=== PATIENT | male | born 1945 | race Caucasian/White ===

== ENCOUNTER 2021-09-07 15:25 | Inpatient (IN) | payer MEDICARE, OTHER, SELFPAY ==
--- NOTE | 2021-09-07 15:26 | W.ED.CHESTPA ---
HPI - Chest Pain General: Chief Complaint: Chest Pain Stated Complaint: CHEST PAIN Time Seen by Provider: 09/07/21 15:25 History of Present Illness: HPI narrative: Mr. Hopkins is a 76-year-old gentleman with history of hypertension, sick sinus rhythm status post pacemaker, and history of cardiac arrest who presents to the emergency department due to chest pain. He reports being at his baseline health the past few days and was out in the yard this morning. The developed some discomfort in his back and higher chest. He initially thought that it was related to GERD however this was higher than normal. It was moderate in intensity and persisted despite rest. He did have associated mild generalized lightheadedness and radiation of the arms or discomfort on 2 spots on his arm (left). He denies frequent history of chest pain. He denies infectious symptoms. He has been compliant with his medication regimen. No other specific changes in health, provoking, exacerbating, or relieving factors that the patient identifies. Review of discharge summary from 07/2018. Patient was working and had sudden onset witnessed collapse after standin, initial rhythm was complete heart block with hypotension. Transcutaneous pacemaker was applied and the patient subsequently received transvenous pacemaker followed by permanent pacemaker. Review of Systems General: Reports: 10 or more systems reviewed and unremarkable except in HPI and below PFSH ED PFSH: Medical History Fall Fell from tree GERD (gastroesophageal reflux disease) HTN (hypertension) Osteoarthritis Sick sinus syndrome Surgical History History of ankle surgery History of hip surgery Status post placement of cardiac pacemaker Family History Other Hypertension Social History Smoking and tobacco status: never smoked Alcohol intake: current Alcohol intake frequency: holidays/special occasions only Household members: spouse Housing: House Physical Exam Narrative: EXAM NARRATIVE: GENERAL/CONSTITUTIONAL - well-appearing. No acute distress. Eyes - PERRL, no conjunctival injection ENMT - Atraumatic external nose and ears. Moist mucous membranes NECK - supple. trachea midline CARDIOVASCULAR - regular rate and rhythm. Peripheral pulses 2+ and equal RESPIRATORY -clear to auscultation bilaterally. No retractions or accessory muscle use. ABDOMEN/GI - Nontender/Nondistended. MSK - Extremities without obvious deformity or tenderness to palpation SKIN - Warm, Dry NEURO - alert and appropriately oriented. Moves all extremities equally. PSYCH - Appropriate mood and affect Course ED course: - Patient was seen and evaluated by me at bedside - Patient placed on cardiac monitors, IV access obtained - Initial evaluation notable for no acute distress, nontoxic appearance. Chest pain-free -PIPE TESTING TECHNICIAN nitro given, will defer prior due to Cialis use, PIPE TESTING TECHNICIAN full dose aspirin given. - Labs notable for Mild leukocytosis and likely hemoconcentration compared to prior. Metabolic panel with mildly elevated creatinine, delta troponin elevated. - Imaging notable for no lobar consolidation or other obvious cause patient symptoms - Upon serial reexamination after treatment the patient was similar, he remained pain-free -Discussed with cardiology on-call - Based on patient history, evaluation, labs, and imaging as interpreted the most likely cause of the patient's condition is NSTEMI - The results of ED evaluation were discussed with the patient including plan for admission due to requirement for level of care not available if discharged to prevent significant worsening/deterioration. -Hospitalist service contacted and agreed admit the patient - Patient was admitted without further deterioration or significant events. Vital Signs: Vital signs: Vital Signs Temperature 98.7 F 09/09/21 08:50 Pulse Rate 66 09/09/21 15:16 Respiratory Rate 19 H 09/09/21 15:16 Blood Pressure 124/78 09/09/21 15:16 Pulse Oximetry 94 09/09/21 11:00 MDM - Chest Pain Medical Records: Attestation: I reviewed the patient's medical records. Lab Data: Attestation: I reviewed the patient's lab results. Labs: Lab Results 09/07/21 09/07/21 09/07/21 15:44 15:44 15:44 WBC 10.1 10^3/uL H 10 ^3/uL (4.0-10.0) RBC 5.67 10^6/uL H 10 ^6/uL (4.1-5.3) Hgb 16.8 g/dL H g/dL (11.7-16.6) Hct 51.2 % % (42.0-52.0) MCV 90.3 fl fl (80-94) MCH 29.6 pg pg (28.0-34.0) MCHC 32.8 g/dL g/dL (30.0-36.0) RDW 13.9 % % (12.1-15.1) Plt Count 202 10^3/cmm 10^3 /cmm (130-400) MPV 12.3 fL H fL (7.4-10.4) Neut % (Auto) 77.4 % % Lymph % (Auto) 17.2 % % [place] % (Auto) 4.5 % % Eos % (Auto) 0.1 % % Baso % (Auto) 0.4 % % Neut # (Auto) 7.82 10^3/uL H 10 ^3/uL (1.8-7.7) Lymph # (Auto) 1.7 10^3/uL 10^3/ uL (0.8-4.8) [place] # (Auto) 0.5 10^3/uL 10^3/ uL (0.2-0.9) Eos # (Auto) 0.0 10^3/uL 10^3/ uL (0.0-0.8) Baso # (Auto) 0.0 10^3/uL 10^3/ uL (0.0-0.1) Nucleated RBC % (a uto) 0 % % Nucleated RBCs # 0.0 /100WBC /100W BC D-Dimer Sodium 139 mmol/L mmol/L (136-145) Potassium 4.8 mmol/L mmol/L (3.5-5.1) Chloride 104 mmol/L mmol/L (98-107) Carbon Dioxide 24 mmol/L mmol/L (22-29) Anion Gap 15.8 (5-19) BUN 33 mg/dL H mg/dL (8-23) Creatinine 1.3 mg/dL H mg/dL (0.7-1.2) GFR Calculation Not Reportable Glucose 118 mg/dL H mg/dL (65-115) Calculated Osmolal ity 296 mOsm/kg H mOs m/kg (285-295) Calcium 10.0 mg/dL mg/dL (8.5-10.5) Total Bilirubin 0.5 mg/dL mg/dL (0.15-1.2) AST 24 U/L U/L (0-40) ALT 15 U/L U/L (0-41) Alkaline Phosphata se 57 IU/L IU/L (40-130) Troponin T Baselin e 47 ng/L H ng/L (0-15) Troponin T [address] [place] Troponin T Total Protein 5.9 g/dL L g/dL (6.6-8.7) Albumin 4.2 g/dL g/dL (3.5-5.2) Globulin 1.7 g/dL g/dL (1.3-4.6) Lipase 45 U/L U/L (13-60) 09/07/21 09/07/21 15:44 18:00 WBC RBC Hgb Hct MCV MCH MCHC RDW Plt Count MPV Neut % (Auto) Lymph % (Auto) [place] % (Auto) Eos % (Auto) Baso % (Auto) Neut # (Auto) Lymph # (Auto) [place] # (Auto) Eos # (Auto) Baso # (Auto) Nucleated RBC % (a uto) Nucleated RBCs # D-Dimer 1.71 ug/mIFEU H u g/mIFEU (0-0.59) Sodium Potassium Chloride Carbon Dioxide Anion Gap BUN Creatinine GFR Calculation Glucose Calculated Osmolal ity Calcium Total Bilirubin AST ALT Alkaline Phosphata se Troponin T Baselin e Troponin T [address] [place] 77.15 ng/L H ng/L (0-15) Delta Troponin T 30.15 ABS# H* ABS # (0-10) Total Protein Albumin Globulin Lipase EKG Data^: EKG 1: Attestation: I personally reviewed and interpreted this EKG as follows: EKG interpretation date: 09/07/21 EKG interpretation time: 15:45 Interpretation: Twelve-lead EKG shows a regular rhythm with a rate of eighty-three. PA interval two thirty-five, QRS duration one twenty-five, QTc four fifteen. Right axis deviation. Interpretation: Sinus rhythm, first-degree AV block, Interventricular conduction delay EKG 2: Attestation: I personally reviewed and interpreted this EKG as follows: EKG interpretation date: 09/07/21 EKG interpretation time: 17:55 Interpretation: Twelve-lead EKG shows a regular rhythm at a rate of seventy-six. PA interval two thirty-nine, QRS duration one twenty-nine, QTc four twelve Right axis deviation Interpretation: Sinus rhythm, first-degree AV block, interventricular conduction delay, similar to prior. Discharge Plan Discharge Patient Disposition: Admitted As Inpatient Admit Provider: Cherelle Duron Clinical Impression: Acute non-ST elevation myocardial infarction (NSTEMI) Condition: Stable Discharge Diet: Low Salt Discharge Activity: Resume usual activity Coding Level of Care Code ED Certified Nurse Aide for Moses Marte
[2021-09-07 15:27] VITALS: BMI 28.8
--- NOTE | 2021-09-07 15:34 | XR_ITS ---
WS: [id number] XR chest 1V portable [id number] REASON FOR EXAM: chest pain FINDINGS: The chest is unchanged compared to 08/17/2018. Battery pack over the left lateral anterior chest with intact leads to the right atrium and right ventricular apex. Heart is at the upper limits of normal. Thoracic aorta is tortuous and ectatic without aneurysmal dilatation. Calcified granulomatous disease in both hemithoraces. Density overlying the periphery of the right mid lung. This appears to be overlapping scapular margin .. No definite active pulmonary parenchymal or pleural disease is seen. XR/XR chest 1V portable [id number] IMPRESSION: No acute abnormality. Presumed artifact overlying the right lung as above.
--- NOTE | 2021-09-07 15:34 | ECG_ITS ---
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 Measurements Intervals [place] Rate: 83 P: 47 [place]: 235 QRS: 113 QRSD: 125 T: -11 QT: 352 QTc: 415 Interpretive Statements SINUS RHYTHM WITH FIRST DEGREE AV BLOCK POSSIBLE RIGHT VENTRICULAR HYPERTROPHY [SOME/ALL OF: PROMINENT R IN V1, LATE TRANSITION, RAD, MIL, SSS] ST ELEVATION, PROBABLY EARLY REPOLARIZATION [ST ELEVATION WITH NORMALLY INFLECTED T-WAVE] NONSPECIFIC T-WAVE ABNORMALITY Compared to ECG 08/17/2018 01:41:59 First degree AV block now present ST (T wave) deviation now present Early repolarization now present T-wave abnormality now present Ventricular-paced complex(es) or rhythm no longer present Right bundle-branch block no longer present Left posterior fascicular block no longer present Electronically Signed On 09-07-2021 15:51:43 CDT by Scott Monge M.D. [id number]
--- NOTE | 2021-09-07 16:19 | PC.PHAR ---
pt states he takes care of his own medications -pt states he had a old rx for robaxin 750mg states he takes prn- medication doesnt show when last filled on ext med history-pt states he normally doesnt take aspirin but did take one tab today as a one time dose
[2021-09-07 16:21] LABS: Basophils % 0.4 %; Eosinophils % 0.1 %; Hematocrit 51.2 % (42.0-52.0); Hemoglobin 16.8 g/dL (11.7-16.6); Lymphocytes # 1.7 10^3/uL (0.8-4.8); Lymphocytes % 17.2 %; Mean Corpuscular HGB Conc 32.8 g/dL (30.0-36.0); Mean Corpuscular Hemoglobin 29.6 pg (28.0-34.0); Mean Corpuscular Volume 90.3 fl (80-94); Mean Platelet Volume 12.3 fL (7.4-10.4); Monocytes # 0.5 10^3/uL (0.2-0.9); Monocytes % 4.5 %; Neutrophils # 7.82 10^3/uL (1.8-7.7); Neutrophils % 77.4 %; Nucleated Red Blood Cells % 0 %; Platelet Count 202 10^3/cmm (130-400); Red Blood Count 5.67 10^6/uL (4.1-5.3); Red Cell Distribution Width 13.9 % (12.1-15.1); White Blood Count 10.1 10^3/uL (4.0-10.0)
[2021-09-07 16:43] VITALS: BP 112/59; PULSE 73; PULSE 83; RESP 14; O2SAT 97
[2021-09-07 16:43] LABS: Troponin(5th) Baseline 47 ng/L (0-15)
[2021-09-07 16:50] LABS: Alanine Aminotransferase 15 U/L (0-41); Albumin Level 4.2 g/dL (3.5-5.2); Alkaline Phosphatase 57 IU/L (40-130); Aspartate Amino Transferase 24 U/L (0-40); Blood Urea Nitrogen 33 mg/dL (8-23); Carbon Dioxide 24 mmol/L (22-29); Chloride 104 mmol/L (98-107); Globulin 1.7 g/dL (1.3-4.6); Glucose 118 mg/dL (65-115); Lipase 45 U/L (13-60); Osmolality Calculated 296 mOsm/kg (285-295); Sodium 139 mmol/L (136-145); Total Bilirubin 0.5 mg/dL (0.15-1.2); Total Protein 5.9 g/dL (6.6-8.7)
[2021-09-07 16:53] LABS: Anion Gap 15.8 (5-19); Potassium 4.8 mmol/L (3.5-5.1)
--- NOTE | 2021-09-07 17:34 | ECG_ITS ---
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 Measurements Intervals [place] Rate: 76 P: 51 [place]: 239 QRS: 112 QRSD: 129 T: -6 QT: 365 QTc: 412 Interpretive Statements SINUS RHYTHM WITH FIRST DEGREE AV BLOCK MODERATE INTRAVENTRICULAR CONDUCTION DELAY [105+ ms QRS DURATION, 80+ ms Q/S IN V1/V2, NO Q AND 60+ ms R IN I/aVL/V5/V6] POSSIBLE RIGHT VENTRICULAR HYPERTROPHY [SOME/ALL OF: PROMINENT R IN V1, LATE TRANSITION, RAD, MIL, SSS] NONSPECIFIC T-WAVE ABNORMALITY Compared to ECG 09/07/2021 15:41:52 Intraventricular conduction delay now present ST (T wave) deviation no longer present Early repolarization no longer present T-wave abnormality still present Electronically Signed On 09-07-2021 23:10:28 CDT by Scott Monge M.D. [id number]
[2021-09-07 18:42] LABS: Troponin 5 2HR 77.15 ng/L (0-15)
[2021-09-07 18:44] LABS: Troponin 5 2HR Delta 30.15 ABS# (0-10)
[2021-09-07 19:08] VITALS: BP 131/80; PULSE 86; RESP 20; O2SAT 93
[2021-09-07] MEDS: enoxaparin 100 mg/mL Syringe 90 MG SUBCUT (19:26)
[2021-09-07] MEDS: clopidogrel 300 mg Tablet 600 MG PO (19:26)
--- NOTE | 2021-09-07 19:34 | P.HP_ITS ---
Providers/Chief Complaint Primary Care Provider: Negro Medina Chief Complaint: CHEST PAIN History of Present Illness Lars Hopkins is a 76 year old male who has 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 Patient is stating that he is normally very active enjoying his retired life, he has never smoked in his life drinks alcohol occasionally. Has history of GERD for last 30 years take omeprazole. Mostly he is able to work 4 hours in his yard. Today he woke up and worked in his yard for about 20 minutes and felt fatigued and lethargic and started noticing mid back pain, around 10:30 AM he came inside his home, 1 hour after started experiencing chest discomfort which she is describing as burning sensation, that he took a shower however his symptoms got worse and then he started experiencing radiation of chest pain towards the right side of his neck and shoulder, he also felt numbness and pain in his arms bilaterally. This prompted him to go to his primary care clinic. Where EKG was done, secondary to intraventricular conduction delay he was sent to the ER for further evaluation. Patient is stating that at the clinic he received sublingual nitroglycerin which eased his chest pain. Chest pain started around 1130 Chest pain relieved around 1 PM after getting sublingual nitroglycerin Since 1 PM he did not experience recurrence of his symptoms In the ER he was diagnosed with NSTEMI, I requested CTA chest abdomen pelvis to rule out aortic dissection, I also requested D-dimer which came back high patient was asymptomatic at the time of my evaluation with normal hemodynamics He was asking for a sandwich as she has not eaten since this morning EKG showing incomplete bundle branch block otherwise no active ischemic or infarctive changes, delta troponin 30 patient is chest pain-free Started ACS protocol System Software Programmer Dr. Serrano consulted by the ER physician Review of Systems Const: Denies: chills Eyes: Denies: change in vision ENMT: Denies: throat pain Card: Reports: chest pain; Denies: palpitations, lightheadedness, dyspnea on exertion or orthopnea Resp: Denies: dyspnea GI: Denies: abdominal pain : Denies: flank pain Musc: Denies: neck pain Skin/Breast: Denies: rash Neuro: Denies: headache(s) Psych: Denies: anxiety Endo: Denies: polyuria John/Lymph: Denies: easy bruising All/Imm: Denies: urticaria Medications/Allergies Home Medications Medication Instructions Recorded Confirmed Last Taken Type diclofenac sodium 100 mg 100 mg PO QAM 09/12/20 09/07/21 09/07/21 08:30 History tablet,extended release 24 hr furosemide 40 mg tablet 40 mg PO QAM 09/12/20 09/07/21 09/07/21 08:30 History ibuprofen 800 mg tablet 800 mg PO TID PRN 09/12/20 09/07/21 Unknown History losartan 100 mg tablet 100 mg PO QAM 09/12/20 09/07/21 09/07/21 08:30 History omeprazole 20 mg capsule,delayed 20 mg PO QAM 09/12/20 09/07/21 09/07/21 08:30 History release tamsulosin 0.4 mg capsule 0.4 mg PO QAM 09/12/20 09/07/21 09/07/21 08:30 History temazepam 30 mg capsule 30 mg PO DAILY PRN cap 09/12/20 09/07/21 Unknown History aspirin 325 mg PO ONCE 09/07/21 09/07/21 09/07/21 10:00 History calcium 600 mg PO DAILY 09/07/21 09/07/21 Unknown History fenofibrate micronized 200 mg PO QAM 09/07/21 09/07/21 09/07/21 08:30 History methocarbamol [Robaxin] 750 mg PO PRN 09/07/21 09/07/21 09/07/21 History multivitamin 1 tab PO DAILY 09/07/21 09/07/21 Unknown History potassium chloride 10 meq PO QAM 09/07/21 09/07/21 09/07/21 08:30 History testosterone cypionate 400 mg SUBCUT .EVERY 3 WEEKS 09/07/21 09/07/21 08/31/21 History Allergies Allergy/AdvReac Type Severity Reaction Status Date / Time No Known Allergies Allergy Verified 09/07/21 16:18 PFSH Acute PFSH: Medical History (Updated 09/07/21 @ 20:59 by Cherelle Duron MD) Fall Fell from tree GERD (gastroesophageal reflux disease) HTN (hypertension) Osteoarthritis Sick sinus syndrome Surgical History (Updated 09/07/21 @ 20:59 by Cherelle Duron MD) History of ankle surgery History of hip surgery Status post placement of cardiac pacemaker Family History (Updated 09/07/21 @ 20:59 by Cherelle Duron MD) Other Hypertension Social History (Updated 09/07/21 @ 20:59 by Cherelle Duron MD) Smoking and tobacco status: never smoked Alcohol intake: current Alcohol intake frequency: holidays/special occasions only Substance/Drug Use: never Household members: spouse Housing: House Vitals/I&O/Wt Last Vital Signs Pulse 86 09/07/21 19:08 Resp 20 H 09/07/21 19:08 BP 131/80 09/07/21 19:08 Pulse Ox 93 09/07/21 19:08 Weight last 48 hrs Weight 91.172 kg Physical Exam Narrative: EXAM NARRATIVE: Appears stated age No active chest pain Looks euvolemic Laying comfortably in his bed S1, S2 sinus rhythm, systolic murmur right 2nd intercostal trace grade 2/ Abdomen soft Lower extremity no edema Bilateral breath sounds without edema or crackles Nonfocal neuro exam EOMI , PERRLA Appropriate mood and affect Data : 09/07/21 15:44 09/07/21 15:44 A&P Assessment and plan (1) Acute non-ST elevation myocardial infarction (NSTEMI): Status: Acute Additional A&P Information Unstable angina NSTEMI Typical chest pain, will benefit from an angiogram N.p.o. after midnight, cardiology consulted Started ACS protocol Significant delta troponin Echo requested Currently chest pain-free Pacemaker evaluation requested Currently hemodynamically stable Hold SRINATH/ARB because of hyperkalemia and ALESHIA Check aortic anatomy, there is no radial radial delay, rule out aortic diss ection requested CTA chest abdomen pelvis ALESHIA and hyperkalemia seems secondary to medication usage Hold potassium, Lasix and ARB Patient looks euvolemic History of GERD: 30 years of GERD, continue Protonix 20mg daily N.p.o. after midnight Full code DVT prophylaxis currently on therapeutic dose of Lovenox Attestations Medical Necessity Statement*: Anticipating stay more than 2 midnights Time Spent in Patient Care: Greater than 35 minutes Coding Level of Care Code Acute Display Designer for Chg Fwd Diagnoses Acute non-ST elevation myocardial infarction (NSTEMI) I21.4
[2021-09-07 20:03] LABS: D Dimer 1.71 ug/mIFEU (0-0.59)
--- NOTE | 2021-09-07 20:21 | CTR_ITS ---
PROCEDURE INFORMATION: Exam: CTA Chest With Contrast Exam date and time: 09/07/2021 8:21 PM Age: 76 years old Clinical indication: Pain; Other: Cp radiating to back; Prior surgery; Surgery type: Pacemaker, tummy tuck, pelvis TECHNIQUE: Imaging protocol: Computed tomographic angiography of the chest with contrast. 3D rendering (Not supervised by radiologist): MIP and/or 3D reconstructed images were created and reviewed. COMPARISON: CR XR chest 1V portable [id number] 09/07/2021 3:43 PM FINDINGS: Tubes, catheters and devices: There is a 2 lead AICD. There is a lead positioned in the right atrium. The right ventricular lead is coiled in main pulmonary artery. The tip is in the anterior right ventricle. Pulmonary arteries: Pulmonary arteries are adequately opacified for evaluation through the segmental level. Subsegmental vessels are obscured. There is no filling defect to suggest embolism. Aorta: The thoracic aorta is normal. There is no aneurysm or dissection. Lungs: Lungs are clear. Pleural spaces: There is no pleural effusion or pneumothorax. Heart: There is mild cardiac enlargement. There is no pericardial effusion. Lymph nodes: There is no mediastinal or hilar lymphadenopathy. Diaphragm: There is a small sliding-type hiatal hernia. Bones/joints: Bones are unremarkable. Soft tissues: The extrathoracic soft tissues are unremarkable. IMPRESSION: 1. No acute findings. 2. No pulmonary embolism. 3. The right ventricular lead of a dual lead AICD is looped in main pulmonary artery with the tip in the anterior right ventricular myocardium. 4. Incidental findings above. PROCEDURE INFORMATION: Exam: CTA Abdomen and Pelvis With Contrast Exam date and time: 09/07/2021 8:21 PM Age: 76 years old Clinical indication: Pain; Other: Cp radiating to back; Prior surgery; Surgery type: Pacemaker, tummy tuck, pelvis TECHNIQUE: Imaging protocol: Computed tomographic angiography of the abdomen and pelvis with contrast material. 3D rendering (Not supervised by radiologist): MIP and/or 3D reconstructed images were created by the technologist. Radiation optimization: All CT scans at this facility use at least one of these dose optimization techniques: automated exposure control; mA and/or kV adjustment per patient size (includes targeted exams where dose is matched to clinical indication); or iterative reconstruction. Contrast material: VISI 320; Contrast volume: 95 ml; Contrast route: INTRAVENOUS (IV); COMPARISON: CR XR chest 1V portable [id number] 09/07/2021 3:43 PM RADIATION DOSE METRICS: Total DLP (mGy-cm): 2266.38 FINDINGS: Mediastinal space: There is a small sliding-type hiatal hernia. Aorta: There is mild aortic atherosclerotic disease. There is no aortic aneurysm. Celiac trunk and mesenteric arteries: No occlusion or significant stenosis. Renal arteries: No occlusion or significant stenosis. Right iliac arteries: No occlusion or significant stenosis. Left iliac arteries: No occlusion or significant stenosis. Liver: The liver is normal. Gallbladder and bile ducts: The gallbladder is normal. There is no biliary dilation. Pancreas: There is a 19 mm cyst with low attenuation fluid located in the pancreatic uncinate process. See series 5, image 152. Spleen: The spleen is unremarkable. Adrenal glands: The adrenal glands are unremarkable. Kidneys and ureters: There are simple cysts in the right kidney. There are 2 hyperenhancing renal parenchymal solid nodules located in the interpolar region measuring up to 19 x 15 mm (series 5, image 154) and at the upper pole measuring 15 x 15 mm (series 5, image 130). There is a morphologically similar mass with peripheral enhancement in the upper pole of the right kidney measuring 2.9 x 2.3 cm on axial series 5, image 137. There is a morphologically similar nodule at the lower pole of the right kidney measuring 19 x 18 mm on axial series 5, image 159. There is no hydronephrosis or stones. Stomach and bowel: The stomach is unremarkable. The small bowel is nondilated. There is mild sigmoid colonic diverticulosis without evidence of diverticulitis. Appendix: The appendix is not visible. Intraperitoneal space: There is no free air or significant intraperitoneal free fluid. Lymph nodes: Unremarkable. No enlarged lymph nodes. Urinary bladder: The urinary bladder is unremarkable. Reproductive: The prostate and seminal vesicles are unremarkable. Bones/joints: There is moderate degenerative disease in the lower lumbar spine. There is plate and screw fixation of the right ilium. There is a screw traversing the sacrum and SI joints. The pelvis and proximal femora are intact. Soft tissues: There is a small fat containing umbilical hernia. CT/CT angio chest abdomen pelvis IMPRESSION: 1. No acute findings. 2. Multiple hyperenhancing bilateral renal nodules measuring up to 2.9 cm on the left and up to 1.9 cm on the right. 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 3. 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 Reimaging every 6 months for 2 years, then every 1 year for 2 years, then every 2 years for 6 years is recommended. Alternatively, endoscopic ultrasound with fine needle aspiration is recommended. (Reference: Peng, 2017) 4. Incidental findings above. REFERENCES: Peng BALLARD, et al. Management of Incidental Pancreatic Cysts: A White Paper of the ACR Incidental Findings Committee. J Am Lauren Radiol. 2017;14(7):911-923. Radiation Dose CTDIVOL = (mGy): DLP = 2266.38 (mGy-cm)
[2021-09-07] MEDS: iodixanol 320 mg/mL 100mL Btl IV (20:45)
--- NOTE | 2021-09-07 21:34 | ECG_ITS ---
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 Measurements Intervals [place] Rate: 67 P: 46 [place]: 248 QRS: 112 QRSD: 145 T: -17 QT: 389 QTc: 413 Interpretive Statements SINUS RHYTHM WITH FIRST DEGREE AV BLOCK INTRAVENTRICULAR CONDUCTION DELAY [130+ ms QRS DURATION] Compared to ECG 09/07/2021 17:45:37 Atrial abnormality no longer present T-wave abnormality no longer present Electronically Signed On 09-08-2021 22:33:56 CDT by Cha Serrano M.D. [id number]
[2021-09-07 21:59] VITALS: BP 112/71; PULSE 80; RESP 26; O2SAT 95
[2021-09-07 22:06] LABS: Troponin 5 6HR 173.7 ng/L (0-15); Troponin 5 6HR Delta 126.7 ng/L (0-12)
[2021-09-07 22:58] VITALS: BMI 28.8
[2021-09-07 22:59] VITALS: BP 132/78; PULSE 75; RESP 18; TEMP 36.9; O2SAT 95
--- NOTE | 2021-09-07 23:30 | PC.NURSE ---
pacemaker without defibrillator to left upper chest wall
[2021-09-07] MEDS: metoprolol succinate ER (24 HR) 25 mg Tablet 12.5 MG PO (23:33)
[2021-09-07] MEDS: lidocaine 2% viscous 15 ML, aluminum-mag hydrox-simethicon 30 ML, sucralfate oral liq 1 GM PO (23:38)
[2021-09-08] VITALS (11 sets, daily range): BP systolic 104–127; BP diastolic 64–78; PULSE 63–86; RESP 16–18; TEMP 35.8–36.7; O2SAT 93–98
[2021-09-08] MEDS: tamsulosin 0.4 mg Capsule PO (05:23)
[2021-09-08 06:37] LABS: Anion Gap 11.1 (5-19); Blood Urea Nitrogen 40 mg/dL (8-23); Calcium 9.6 mg/dL (8.5-10.5); Carbon Dioxide 28 mmol/L (22-29); Chloride 103 mmol/L (98-107); Glucose 89 mg/dL (65-115); Magnesium 2.1 mg/dL (1.7-2.3); Osmolality Calculated 295 mOsm/kg (285-295); Potassium 4.1 mmol/L (3.5-5.1); Sodium 138 mmol/L (136-145)
--- NOTE | 2021-09-08 06:39 | P.CONIM_ITS ---
Providers/Reason For Consult Consulting Physician/Specialty*: Dr. Serrano, Cardiology Reason for Consult*: NSTEMI, elevated troponin Attending Physician: Cherelle Duron MD Primary Care Provider: Negro Medina History of Present Illness History of Present Illness Lars Hopkins is a 76 year old male with past medical history of hypertension, hypertriglyceridemia, BPH, GERD, h/o CHB and collapse status post pacemaker placement in 07/2018. Normal coronaries and LV function at that time. 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 He is normally very active, has never smoked and drinks alcohol occasionally. He presented with chief complaint of chest pain. He was working in his yard after about 20-30 minutes and felt fatigued and noticed some mid back pain. This was around 10:30 AM, after about an hour, he had burning chest discomfort similar to what he has with esophagitis but retrosternal in location with radiation to both sides of his chest, right jaw and shoulder along with numbness and pain in both arms. He went to his primary care's office. EKG was done and he was sent to the ER for further evaluation. He did receive sublingual nitroglycerin which eased his chest pain at PCPs office. Baseline troponin T 47-> 77 --> 174. CXR with no acute abnormality. CTA chest/abdomen was done to r/o dissection. No dissection was noted however multiple hyperenhancing bilateral renal nodules measuring up to 2.9 cm on left and up to 1.9 cm on right were noted. Of note patient has known history of renal cyst for which he is being followed by Dr. Sin (aircraft powerplant repairer at [facility] ). His follow-up appointment with aircraft powerplant repairer is next week. No history of abnormal renal function per patient. Patient is currently CP free. No episodes of chest discomfort overnight or this morning. He recieved plavix 600 mg and lovenox 90 mg SQ x 1 in ER. Review of Systems General: Reports: 10 or more systems reviewed and unremarkable except in HPI and below Const: Denies: chills Eyes: Denies: change in vision Card: Reports: chest pain; Denies: palpitations, lightheadedness, dyspnea on exertion or orthopnea Resp: Denies: dyspnea GI: Denies: abdominal pain, hematochezia or melena : Denies: flank pain, difficulty starting urination, change in urine stream or oliguria Musc: Denies: neck pain or extremity swelling Skin/Breast: Denies: rash Neuro: Denies: headache(s) Psych: Denies: anxiety Endo: Denies: polyuria John/Lymph: Denies: easy bruising All/Imm: Denies: urticaria Meds/Allergies Home Medications and Allergies Home Medications Medication Instructions Recorded Confirmed Last Taken Type diclofenac sodium 100 mg 100 mg PO QAM 09/12/20 09/07/21 09/07/21 08:30 History tablet,extended release 24 hr furosemide 40 mg tablet 40 mg PO QAM 09/12/20 09/07/21 09/07/21 08:30 History ibuprofen 800 mg tablet 800 mg PO TID PRN 09/12/20 09/07/21 Unknown History losartan 100 mg tablet 100 mg PO QAM 09/12/20 09/07/21 09/07/21 08:30 History omeprazole 20 mg capsule,delayed 20 mg PO QAM 09/12/20 09/07/21 09/07/21 08:30 History release tamsulosin 0.4 mg capsule 0.4 mg PO QAM 09/12/20 09/07/21 09/07/21 08:30 History temazepam 30 mg capsule 30 mg PO DAILY PRN cap 09/12/20 09/07/21 Unknown History aspirin 325 mg PO ONCE 09/07/21 09/07/21 09/07/21 10:00 History calcium 600 mg PO DAILY 09/07/21 09/07/21 Unknown History fenofibrate micronized 200 mg PO QAM 09/07/21 09/07/21 09/07/21 08:30 History methocarbamol [Robaxin] 750 mg PO PRN 09/07/21 09/07/21 09/07/21 History multivitamin 1 tab PO DAILY 09/07/21 09/07/21 Unknown History potassium chloride 10 meq PO QAM 09/07/21 09/07/21 09/07/21 08:30 History testosterone cypionate 400 mg SUBCUT .EVERY 3 WEEKS 09/07/21 09/07/21 08/31/21 History Allergies Allergy/AdvReac Type Severity Reaction Status Date / Time No Known Allergies Allergy Verified 09/07/21 16:18 Current Medications Current Medications Generic Name Dose Route Start Last Admin Trade Name Freq PRN Reason Stop Dose Admin Tamsulosin HCl 0.4 mg 09/08/21 06:00 09/08/21 05:23 Tamsulosin 0.4 Mg Capsule PO 0.4 mg QAM ANDERS Administration PFSH Acute PFSH: Medical History Fall Fell from tree GERD (gastroesophageal reflux disease) HTN (hypertension) Osteoarthritis Sick sinus syndrome Surgical History History of ankle surgery History of hip surgery Status post placement of cardiac pacemaker Family History Other Hypertension Social History Smoking and tobacco status: never smoked Alcohol intake: current Alcohol intake frequency: holidays/special occasions only Substance/Drug Use: never Household members: spouse Housing: House Vitals/I&O/Wt Last Vital Signs Temp 97.9 F 09/08/21 04:00 Pulse 64 09/08/21 04:00 Resp 18 09/08/21 04:00 BP 127/78 09/08/21 04:00 Pulse Ox 95 09/08/21 04:00 09/07/21 09/07/21 09/08/21 14:59 22:59 06:59 Intake Total 240 / 240 Balance 240 / 240 Weight last 48 hrs Weight 201 lb Weight 201 lb Physical Exam Narrative: EXAM NARRATIVE: GENERAL: Averagely built and averagely nourished in no acute distress HEENT: Pupils equal round reactive to light. No pallor or icterus. NECK: No JVD. No carotid bruit. CARDIOVASCULAR SYSTEM: S1-S2 regular. No murmur rubs or gallops. RESPIRATORY SYSTEM: Chest clear to auscultation. No wheezes rhonchi or rubs heard. No use of accessory muscles. ABDOMEN: Soft, nontender and nondistended. Normal bowel sounds present. EXTREMITIES: No cyanosis or clubbing. [No edema]. No signs of chronic venous insufficiency. ENCAPSULATOR: Patient is alert oriented ?3. No focal neurological deficits. SKIN: Normal turgor and temperature. PSYCH: Normal insight and judgment. Data Other Data: Other data: CTA chest /abdomen and pelvis (09/07/21) CT chest (09/07/21) IMPRESSION: 1. No acute findings. 2. No pulmonary embolism. 3. The right ventricular lead of a dual lead AICD is looped in main pulmonary artery with the tip in the anterior right ventricular myocardium. 4. Incidental findings above. IMPRESSION: 1. No acute findings. 2. Multiple hyperenhancing bilateral renal nodules measuring up to 2.9 cm on the left and up to 1.9 cm on the right. 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 3. 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 Reimaging every 6 months for 2 years, then every 1 year for 2 years, then every 2 years for 6 years is recommended. Alternatively, endoscopic ultrasound with fine needle aspiration is recommended. A&P Assessment and plan (1) Acute non-ST elevation myocardial infarction (NSTEMI): Patient's creatinine has increased today. BUN of 40 creatinine 1.5. -Hold off on cardiac catheterization this morning. -Follow-up on echocardiogram. -We will set him up for cath tomorrow morning. Risks and benefits were discussed with the patients. Possible complications were reviewed with the patient as well. Plan is to proceed for the procedure at the earliest after some IV hydration today. Status: Acute (2) Hypertension: Status: Acute Qualifiers: Hypertension type: primary hypertension Qualified Code(s): I10 - Essential (primary) hypertension (3) ALESHIA (acute kidney injury): Status: Acute Additional A&P Information Hypertriglyceridemia Gastroesophageal reflux disease BPH Thank you for allowing me to participate in patient's care. Please feel free to call with questions or concerns. Consult Attestations Time Spent in Patient Care: 16 - 35 minutes (>than 50% of time spent in counselling and/or direct pt care on unit) . Coding Level of Care Code Acute Mechanical Manufacturing Technician for [facility] Diagnoses Acute non-ST elevation myocardial infarction (NSTEMI) I21.4 Hypertension I10 Hypertension type: primary hypertension ALESHIA (acute kidney injury) N17.9
[2021-09-08 07:15] LABS: Basophils # 0.1 10^3/uL (0.0-0.1); Basophils % 0.6 %; Eosinophils # 0.2 10^3/uL (0.0-0.8); Eosinophils % 1.8 %; Hematocrit 48.7 % (42.0-52.0); Hemoglobin 15.7 g/dL (11.7-16.6); Lymphocytes # 3.2 10^3/uL (0.8-4.8); Lymphocytes % 36.3 %; Mean Corpuscular HGB Conc 32.2 g/dL (30.0-36.0); Mean Corpuscular Hemoglobin 28.9 pg (28.0-34.0); Mean Corpuscular Volume 89.7 fl (80-94); Mean Platelet Volume 10.6 fL (7.4-10.4); Monocytes % 11.6 %; Neutrophils # 4.37 10^3/uL (1.8-7.7); Neutrophils % 49.2 %; Nucleated Red Blood Cells % 0 %; Platelet Count 275 10^3/cmm (130-400); Red Blood Count 5.43 10^6/uL (4.1-5.3); Red Cell Distribution Width 13.9 % (12.1-15.1); White Blood Count 8.9 10^3/uL (4.0-10.0)
[2021-09-08] MEDS: aspirin 81 mg EC Tablet PO (07:59)
[2021-09-08] MEDS: enoxaparin 100 mg/mL Syringe 90 MG SUBCUT (08:00)
[2021-09-08] MEDS: atorvastatin 40 mg Tablet 80 MG PO (08:26)
[2021-09-08] MEDS: clopidogrel 75 mg Tablet PO (08:26)
[2021-09-08] MEDS: pantoprazole DR 40 mg Tablet 20 MG PO (08:27)
--- NOTE | 2021-09-08 10:48 | PC.CHAP ---
Pastoral Care Encounter/Spiritual Assessment Type of Contact [] Declined cash specialist visit [] Patient/Family/Request visit [] Outpatient visit [] Follow-up visit [] Physician referral [] Code/Alert [x] Routine visit [] Staff referral [] Actively dying [x] Patient sleeping [] Family support [] [] Out of room [] Palliative care [] [] Receiving care in room [] Pre-surgical visit [] Trauma [] Long length of stay [] ICU visit [] Other: Relational/Emotional Strength [] Patient feels connected with others/family/visitors/staff [] Distress [] Loneliness/isolation [] Abandonment Spirituality of Patient [] Person of Patience [] Attends Shinto of their Patience [] Believes in Prayer [] Reads Bible or Yazidi materials [] There are Spiritual issues to be addressed Rip Sawyer Interventions [] Prayer [] Active listening [] Non-anxious presence [] Spiritual/emotional support [] Crisis/trauma care [] Spiritual counseling [] Bereavement support [] Provided bereavement packet [] Provided Bible/devotional materials [] Provided toy/stuffed animal, coloring book to patient or family member [] Provided Communion [] Anointing/[place] [] Salvation [] Completed spiritual assessment [] Other: Impact on Illness or Injury [] Angry [] Fearful [] Anxious [] Often cries [] Exhaustion [] Unable to work [] Unable to attend advent [] Unable to walk/stand [] Unable to read [] Unable to drive [] Unable to eat/drink [] Unable to sleep [] Unable to be with family [] Patient intubated [] Other: Summary Time spent with patient
[2021-09-08 10:52] LABS: Estmated Average Glucose 120; Hemoglobin A1C 5.8 % (4.0-6.0)
[2021-09-08] MEDS: sodium chloride 0.9% 500 ML 100 ML IV (11:00)
[2021-09-08 11:39] LABS: Chol HDL Ratio 4.62 mg/dL (1.0-5.00); Cholesterol 120 mg/dL (0-200); HDL Cholesterol 26 mg/dL (60-100); LDL Cholesterol Calculated 65 mg/dL (50-129); Triglycerides 144 mg/dL (0-150)
[2021-09-08 11:45] LABS: Troponin T (5th) Once 436 ng/L (0-15)
--- NOTE | 2021-09-08 13:44 | PC.NURSE ---
ORDER FOR 500ML OF NS IVF, NOT SCANNING, ENTERED MANUALLY, VERIFIED ORDER WITH PHARMACY
[2021-09-08] MEDS: metoprolol tartrate 25 mg Tablet 12.5 MG PO ×2 (14:40→21:06)
--- NOTE | 2021-09-08 16:54 | P.PN_ITS ---
Subjective Subjective: Interval history: Patient was seen and examined this morning, denies any chest pain shortness of breath nausea ,vomiting ,dizziness ,sweating. Medications: Reviewed: Yes Vitals/I&O/Wt Last Vital Signs Temp 97.8 F 09/08/21 12:00 Pulse 80 09/08/21 12:00 Resp 16 09/08/21 12:00 BP 105/70 09/08/21 12:00 Pulse Ox 95 09/08/21 12:00 09/08/21 09/08/21 09/08/21 06:59 14:59 22:59 Intake Total 240 / 240 354 / 354 Balance 240 / 240 354 / 354 Weight last 48 hrs Weight 91.172 kg Weight 91.172 kg Physical Exam Const: COMMON NORMALS: patient oriented x3 HENMT: COMMON NORMALS: normocephalic, atraumatic, hearing grossly normal bilaterally and external ears normal HEAD & SCALP: normocephalic and atraumatic EXTERNAL EAR: Yes external ears normal Eye: COMMON NORMALS: no scleral icterus GENERAL EYE: appearance normal, both eyes and all related structures Chest: COMMONS NORMALS: normal inspection of the chest and normal palpation of entire chest wall CHEST: Yes Symmetrical chest wall rise Resp: COMMON NORMALS: normal respiratory effort, No retractions, No use of accessory muscles and clear to auscultation bilaterally EFFORT & INSPECTION: Yes symmetric chest movement AUSCULTATION: clear to auscultation bilaterally Cardio: COMMON NORMALS: regular rate, regular rhythm, S1 normal heart sound present, S2 normal heart sound present, No gallops present (Cardio), No murmurs present (Cardio), No rub (Cardio) and Peripheral pulses 2+ throughout RATE: regular rate RHYTHM: regular rhythm HEART SOUNDS: S1 normal heart sound present and S2 normal heart sound present PERIPHERAL PULSES: Peripheral pulses 2+ throughout GI: COMMON NORMALS: Normal to inspection, nondistended, normoactive bowel sounds present, Soft to palpation, non-tender, No hepatosplenomegaly present and no masses AUSCULTATION: Yes normoactive bowel sounds PALPATION: Yes Soft to palpation and Yes No hepatosplenomegaly present RECTAL EXAM: Yes deferred : COMMON NORMALS: Yes no CVA tenderness BLADDER/KIDNEY EXAM: Yes no CVA tenderness Back/Pelvis: COMMON NORMALS: no CVA tenderness Extremity: COMMON NORMALS: no clubbing, cyanosis or edema and no pedal edema Neuro: COMMON NORMALS: patient oriented x3 Data : 09/08/21 05:40 09/08/21 05:40 A&P Assessment and plan (1) Acute non-ST elevation myocardial infarction (NSTEMI): Currently on ACS protocol (therapeutic Lovenox, aspirin, statin, low-dose beta-hugo ) 2D echo: Normal LV cavity, normal LVEF:55 %, hypokinesis of basal inferolateral and basal to mid anterolateral longoria. Grade I diastolic dysfunction.Pulmonary artery pressure estimated at 24 mm Hg. No gross valvular abnormality.Trace to mild tricuspid valve regurgitation. Awaiting CAG : Status: Acute (2) ALESHIA (acute kidney injury): ALESHIA on CKD stage III: Likely secondary to contrast use: Currently on gentle IV hydration. Continue to hold ARB. Monitor BMP. Status: Acute (3) Status post placement of cardiac pacemaker: Prior history of sick sinus syndrome. 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 # Multiple hyperenhancing bilateral renal nodules measuring up to 2.9 cm on the left and up to 1.9 cm on the right. 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 Currently being followed up by urologist Dr. Sin as an outpatient. Patient wants to continue to follow with him, has a recent appointment. For follow-up imaging studies. NSTEMI Typical chest pain, will benefit from an angiogram N.p.o. after midnight, cardiology consulted Started ACS protocol Significant delta troponin Echo requested Currently chest pain-free Pacemaker evaluation requested Currently hemodynamically stable Hold SRINATH/ARB because of hyperkalemia and ALESHIA Check aortic anatomy, there is no radial radial delay, rule out aortic dissection requested CTA chest abdomen pelvis ALESHIA and hyperkalemia seems secondary to medication usage Hold potassium, Lasix and ARB Patient looks euvolemic History of GERD: 30 years of GERD, continue Protonix 20mg daily N.p.o. after midnight Full code DVT prophylaxis currently on therapeutic dose of Lovenox Attestations Medical Necessity Statement*: Patient is to be in hospital for management of NSTEMI Coding Level of Care Code Acute Pattern Lease Inspector for [facility] Diagnoses Acute non-ST elevation myocardial infarction (NSTEMI) I21.4 ALESHIA (acute kidney injury) N17.9 Status post placement of cardiac pacemaker Z95.0 Hypertension I10 Hypertension type: primary hypertension
[2021-09-08 18:34] LABS: SARS Covid-2 Antigen Negative (Negative)
--- NOTE | 2021-09-08 20:24 | PC.NURSE ---
Dr. Serrano at bedside. verbal orders (repeated back): 1.) Hold evening and am dose of Lovenox 2.) Start NS @ 50mls/hr at midnight 3.) Notify day shift nurse to admin aspirin and plavix as scheduled in the morning prior to procedure. No other orders given.
--- NOTE | 2021-09-08 22:56 | USCV_ITS ---
Lars Hopkins Age: 76 Gender: M : 1945 Exam Date: 09/08/2021 05:48 Ordering Phys: Cherelle Duron MD Technologist: Shala Araiza Exam Location: [facility] Indication: NSTEMI BP: 104 / 66 HR: 65 Rhythm: Sinus Technical Quality: Suboptimal MEASUREMENTS (Male / Female) Normal Values 2D ECHO LV Diastolic Diameter PLAX 5.2 cm 4.2 - 5.9 / 3.9 - 5.3 cm LV Systolic Diameter PLAX 3.1 cm IVS Diastolic Thickness 1.7 cm 0.6 - 1.0 / 0.6 - 0.9 cm IVS Systolic Thickness 2.4 cm LVPW Diastolic Thickness 1.8 cm 0.6 - 1.0 / 0.6 - 0.9 cm LVPW Systolic Thickness 2.4 cm LVOT Diameter 2.0 cm LV Ejection Fraction 2D Teich 72.0 % LV Ejection Fraction MOD 2C 66.0 % LV Ejection Fraction 2C AL 64.1 % LA Diameter 3.4 cm LA Width 3.1 cm LA Height 4.3 cm RA Width 3.9 cm RA Height 3.8 cm Aorta at Sinotubular Diameter 2.6 cm M-MODE Aortic Annulus Diameter 2.8 cm LA Ao Ratio MM 1.3 MV E Point Septal Separation 0.3 cm DOPPLER AV Peak Velocity 150.3 cm/s LVOT Peak Velocity 105.0 cm/s AV Area Cont Eq vti 2.2 cm squared AV Area Cont Eq pk 2.2 cm squared MV Peak Velocity 77.0 cm/s MV Area PHT 3.1 cm squared Mitral E to A Ratio 0.6 MV E' Velocity 23.0 cm/s Mitral E to MV E' Ratio 6.0 Mitral E to LV E' Lateral Ratio 5.3 Mitral E to LV E' Septal Ratio 6.9 TR Peak Velocity 227.9 cm/s TR Peak Gradient 20.8 mmHg TR Mean Velocity 150.8 cm/s TR Mean Gradient 9.7 mmHg TR Velocity Time Integral 57.2 cm TV Peak E Velocity 48.0 cm/s Right Atrial Pressure 3.0 mmHg Pulmonary Artery Systolic Pressu 23.8 mmHg PV Peak Velocity 149.0 cm/s RV Acceleration Time 0.1 s RV Ejection Time 0.3 s RV AcT/ET 0.2 FINDINGS Left Ventricle Normal left ventricular cavity size. Increased left ventricular wall thickness. Normal left ventricular systolic function. Left ventricular ejection fraction is estimated at 55%. There is hypokinesis of basal inferolateral and basal to mid anterolateral longoria. Grade I diastolic dysfunction (abnormal relaxation filling pattern), normal to mildly elevated filling pressures. Right Ventricle Upper normal right ventricle cavity size with normal right ventricle systolic function. Pacemaker wire visualized in the right ventricle. Right ventricular systolic pressure 24 mmHg. Right Atrium Normal right atrial size. Pacemaker wire in the right atrial cavity. Right atrial pressure estimated at 3 mmHg. Left Atrium Mildly increased left atrial size. Mitral Valve Structurally normal mitral valve. No mitral valve stenosis. No mitral valve regurgitation. Aortic Valve Aortic valve not well visualized. No aortic valve stenosis. No aortic valve regurgitation. Tricuspid Valve Structurally normal tricuspid valve. Trace to mild tricuspid valve regurgitation. Pulmonic Valve Pulmonic valve not well visualized. Mild pulmonary valve regurgitation. Pericardium No pericardial effusion. Aorta Normal size aortic root and proximal ascending aorta. Normal- sized inferior vena cava with normal respiratory variation. CONCLUSIONS 1. Normal left ventricular cavity size. Increased left ventricular wall thickness. Normal left ventricular systolic function. Left ventricular ejection fraction is estimated at 55%. There is hypokinesis of basal inferolateral and basal to mid anterolateral longoria. Grade I diastolic dysfunction (abnormal relaxation filling pattern), normal to mildly elevated filling pressures. 2. Upper normal right ventricle cavity size with normal right ventricle systolic function. 3. Pulmonary artery pressure estimated at 24 mm Hg. 4. Mild pulmonary valve regurgitation. 5. When compared to prior echocardiogram dated 08/17/2018, there seems to be some regional wall motion abnormality now. Cha Serrano MD (Electronically Signed) Final Date: 08 September 2021 09:41 S
[2021-09-09] VITALS (14 sets, daily range): BP systolic 94–130; BP diastolic 55–95; PULSE 60–70; RESP 13–23; TEMP 36.6–37.1; O2SAT 93–95
[2021-09-09] MEDS: sodium chloride 0.9% 1,000 ML 50 ML IV (00:07)
[2021-09-09 05:16] LABS: Basophils # 0.1 10^3/uL (0.0-0.1); Basophils % 0.8 %; Eosinophils # 0.3 10^3/uL (0.0-0.8); Eosinophils % 3.6 %; Hematocrit 48.2 % (42.0-52.0); Hemoglobin 15.4 g/dL (11.7-16.6); Lymphocytes # 2.7 10^3/uL (0.8-4.8); Lymphocytes % 37.6 %; Mean Corpuscular Hemoglobin 29.5 pg (28.0-34.0); Mean Corpuscular Volume 92.3 fl (80-94); Mean Platelet Volume 10.4 fL (7.4-10.4); Monocytes # 0.9 10^3/uL (0.2-0.9); Monocytes % 12.2 %; Neutrophils # 3.26 10^3/uL (1.8-7.7); Neutrophils % 45.2 %; Nucleated Red Blood Cells % 0 %; Platelet Count 252 10^3/cmm (130-400); Red Blood Count 5.22 10^6/uL (4.1-5.3); Red Cell Distribution Width 13.9 % (12.1-15.1); White Blood Count 7.2 10^3/uL (4.0-10.0)
[2021-09-09 05:53] LABS: Anion Gap 12.2 (5-19); Blood Urea Nitrogen 26 mg/dL (8-23); Calcium 9.1 mg/dL (8.5-10.5); Carbon Dioxide 22 mmol/L (22-29); Chloride 108 mmol/L (98-107); Glucose 107 mg/dL (65-115); Magnesium 1.9 mg/dL (1.7-2.3); Osmolality Calculated 291 mOsm/kg (285-295); Potassium 4.2 mmol/L (3.5-5.1); Sodium 138 mmol/L (136-145)
[2021-09-09] MEDS: tamsulosin 0.4 mg Capsule PO (06:29)
[2021-09-09] MEDS: clopidogrel 75 mg Tablet PO (08:59)
[2021-09-09] MEDS: pantoprazole DR 40 mg Tablet 20 MG PO (08:59)
[2021-09-09] MEDS: atorvastatin 40 mg Tablet 80 MG PO (08:59)
[2021-09-09] MEDS: diphenhydrAMINE 50 mg Capsule PO (08:59)
[2021-09-09] MEDS: aspirin 81 mg EC Tablet PO (08:59)
[2021-09-09] MEDS: metoprolol tartrate 25 mg Tablet 12.5 MG PO (08:59)
--- NOTE | 2021-09-09 09:45 | XACV_ITS ---
Exam Room: [facility] Ht: 178 cm Wt: 91 kg BSA: 2.14 m2 Gender: Male : 1945 Any Known Allergies: No known allergies Exam Priority: Routine Procedure(s): Procedure Description: Diagnostic procedure Procedure Description: Left Heart Catheterization Procedure Description: Coronary Angiography Diagnostic Cath Status: Urgent Diagnostic Findings * Left Main has no disease. * Circumflex has no disease. * Right Coronary Artery has no disease. * Proximal Left Anterior Descending: mild 40% stenosis, JM: 3 flow. * Coronary angiography shows right dominance. Conclusions 1. Mild to 2. moderate proximal to mid LAD stenosis. No significant coronary artery disease.. 3. Presentation consistent with RI with normal coronary arteries([place]). Recommendations * Aggressive risk factor modification. * Continue DAPT. * Outpatient cardiology follow up in 4 weeks. Interventional RX Recommendation: medical therapy and/or counseling Diagnostic RX Recommendation: medical therapy and/or counseling Pressures Phase:Rest AO : 90 / 65 ( 79 ) @ 9:30:00 AM 95 / 68 ( 82 ) @ 9:36:00 AM 108 / 67 ( 84 ) @ 9:39:00 AM 113 / 55 ( 86 ) @ 9:39:00 AM LV : 127 / 0 / 15 @ 9:38:00 AM 129 / -1 / 17 @ 9:39:00 AM Valves Phase:DefaultPhase AV : 20.0 @ 10:51:37 AM 20.0 @ 10:51:37 AM AV Mean Gradient: 13.0 @ 10:51:37 AM Clinical Evaluation EBL: 5mL-10mL Procedural Details Procedure Consent Obtained. Current Diagnosis : NSTEMI. Pre-Procedure Time Out. Identified patient by full name and date of as verbalized by the patient/guarantor. Does the consent match the physician's order: Yes. Accurate & Complete Informed Consent: Yes. Inpatient/Outpatient History & Physical on Chart: Yes. If H&P is completed, is and addenduem needed: No; If yes, is the addendum complete: N/A. Visualize and Verify Site with Patient/Guarantor: N/A. Relevant Radiology Images available: Yes. Pre-op teaching completed and patient verbalized understanding. The risks, benefits, and alternatives of sedation and/or procedure were discussed by physician. The patient agrees to continue. Procedure started. Armando Gomez scrubbing and Rehana Oswald RN circulating. [facility] Clinical Fraility Score: 3: Managing Well. Sterile Instrument Technician Indications: ACS > 24 hours. Chest Pain Symptom Assessment: Typical Angina Symptoms. Correct patient, site and procedure confirmed by cath team. Current diagnosis: NSTEMI. PERRLA. 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 Lungs clear x 5 lobes. IV Site on Arrival: 18 gauge in the left anticubital. IV Fluids: 0.9% NaCl at KVO. 500 mL infused prior to catheterization laboratory technician. Pre Procedural Pulses: right radial was 2+. Oxygen started at 2liters/min via nasal canula. right groin was prepped with chloroprep then draped in the usual sterile fashion. right radial was prepped with chloroprep then draped in the usual sterile fashion. Physician notified. Baseline sample Acquired. HR: 63 BPM. Physician arrived. Physician scrubbed in. Immediate Pre-Procedure Time Out. Correct Patient: Yes; Correct Procedure: Yes; Correct Site: Yes; Correct Patient Position: Yes; Correct Supplies: Yes; Dried Flammable Prep: Yes; Blood Products Available: N/A;. Lidocaine 1% infiltrated to the right radial. Arterial access obtained. A 5 bhutanese JL3.5 catheter in over wire. Multiple views taken of left coronary artery. Catheter removed over the exchange wire. A 5 bhutanese JR4 catheter in over wire. Multiple views taken of right coronary artery. EDP Sample taken: LV 127/0,15; HR: 61 BPM; SpO2: 96%. Pullback taken: LV 129/-2,17; AO 108/67(84); Mean: 13mmHg, Peak to Peak: 20mmHg, SEP: 12sec/min; HR: 64 BPM; SpO2: 95%. Catheter removed over the exchange wire. Physician review of cine films. Physician scrubbed out. TR band placed. Hemostasis obtained. A TR Band was successful obtaining hemostatsis at the Right Radial artery insertion site. Post Procedure: Pulses reassessed and unchanged. PERRLA. 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 No VTE prophylaxis required. Medication's Wasted: Heparin = 1000 units. Medication's Wasted: Other = Versed 1 mg. Medication's Wasted: Other = Fentanyl 50 mg. Medication's Wasted: Lidocaine 1% = 18 mL. Total IV fluids: 41 mL. Complications: None. Estimated blood loss: 5mL-10mL. Procedure completed. Patient transferred by wheelchair to 1st floor. Vital chart was stopped. Access Site Site: Right Radial artery Sheath Size: 5 Fr Hemostasis Method: TR Band Hemostasis Success: Successful Procedure Medications Start: 10:19 AM Stop: 10:19 AM Medication: Fentanyl Amount: 50 mcg Route: I.V. Start: 10:20 AM Stop: 10:20 AM Medication: Versed Amount: 1 mg Route: I.V. Start: 10:25 AM Stop: 10:25 AM Medication: Nitrogylcerin Amount: 200 mcg Route: I.A. Start: 10:30 AM Stop: 10:30 AM Medication: Heparin Amount: 5000 units Route: I.V. I, the attending physician, have reviewed and verified all procedure medications. Yes, all medications given per verbal order History/Risk Factors Hypertension: Yes Dyslipidemia: Yes Peripheral Arterial Disease (PAD): No Myocardial Infarction (RI): No Obesity: No Renal Disease: No Prior Interventions PCI: No CABG: No Valve Surgery: No Report Signatures Finalized by Scott Monge MD on 09/23/2021 07:02 PM
--- NOTE | 2021-09-09 10:01 | W.PM.OPSUD ---
Surgery/Procedure H&P Update DATE OF PROCEDURE: September 09, 2021 DATE H&P PERFORMED: 09/08/21 H&P UPDATE INFORMATION: I have reviewed H&P completed within last 30 days, I have examined patient prior to procedure and No changes to prior documentation PREOP DIAGNOSIS: NSTEMI PRIMARY INDICATION FOR PROCEDURE: NSTEMI PLANNED PROCEDURE: Left heart cath with possible percutaneous coronary intervention PATIENT REASSESSED PRIOR TO SEDATION, WITH NO CHANGE NOTED: Yes PHYSICAL EXAM: alert, oriented x 3 and clear to auscultation bilaterally AIRWAY EVAL/ANESTHESIA PLAN: ASA III, Monitored Anesthesia, Local Anesthesia, Risks, benefits & alternatives of sedation and/or procedure discussed and Patient agrees to continue as planned
--- NOTE | 2021-09-09 10:51 | PM.PN ---
Subjective Subjective: Interval history: Patient is chest pain free. Troponins went up significantly. Underwent coronary angiogram today that showed patent coronary arteries with mild to moderate LAD stenosis. LV systolic function is normal on echocardiogram Vitals/I&O/Wt Last Vital Signs Temp 98.7 F 09/09/21 08:50 Pulse 70 09/09/21 08:54 Resp 18 09/09/21 08:54 BP 110/69 09/09/21 08:50 Pulse Ox 94 09/09/21 08:54 09/08/21 09/09/21 09/09/21 22:59 06:59 14:59 Intake Total 1100 / 1574 200 / 1774 Output Total 300 / 300 Balance 800 / 1274 200 / 1474 Weight last 48 hrs Weight 201 lb Weight 201 lb Physical Exam Narrative: EXAM NARRATIVE: GENERAL: Patient is alert, awake and oriented x3. [] NECK: No jugular vein distension. [] HEENT: No cyanosis. No icterus. No pallor. [] HEART: Regular S1 and S2. No murmur, rub or gallop. [] LUNGS: Clear to auscultate bilaterally. [] ABDOMEN: Soft, nontender and nondistended. Positive bowel sounds. No guarding, rebound or tenderness. [] CENTRAL NERVOUS SYSTEM: Grossly nonfocal. [] EXTREMITIES: Lower extremities with no edema bilaterally. Pulses palpable in the lower extremities, both dorsalis pedis and posterior tibial. [] Data : 09/09/21 04:58 09/09/21 04:58 A&P Assessment and plan (1) Acute non-ST elevation myocardial infarction (NSTEMI): Status: Acute (2) Hypertension: Status: Acute Qualifiers: Hypertension type: primary hypertension Qualified Code(s): I10 - Essential (primary) hypertension (3) ALESHIA (acute kidney injury): Status: Acute Patient had significant troponin elevation with chest discomfort episode however coronary arteries do not show significant stenosis. Likely [place] with normal coronary arteries([place]). Continue aspirin and Plavix for atleast 1 year High intensity statin therapy Beta-hugo Creatinine normalized. IV hydration for 4 hours post procedure Thank you for involving us with care of this patient. Patient is stable to be discharged today once TR band is off. Please call with questions. Attestations Medical Necessity Statement*: Care expected to cross 2 midnights. Coding Level of Care Code Acute Staff Midwife for Moses Fwd Diagnoses Acute non-ST elevation myocardial infarction (NSTEMI) I21.4 Hypertension I10 Hypertension type: primary hypertension ALESHIA (acute kidney injury) N17.9
--- NOTE | 2021-09-09 11:01 | P.PN_ITS ---
Vitals/I&O/Wt Last Vital Signs Temp 98.7 F 09/09/21 08:50 Pulse 70 09/09/21 08:54 Resp 18 09/09/21 08:54 BP 110/69 09/09/21 08:50 Pulse Ox 94 09/09/21 08:54 09/08/21 09/09/21 09/09/21 22:59 06:59 14:59 Intake Total 1100 / 1574 200 / 1774 Output Total 300 / 300 Balance 800 / 1274 200 / 1474 Weight last 48 hrs Weight 91.172 kg Weight 91.172 kg Data : 09/09/21 04:58 09/09/21 04:58 Coding Level of Care Code Acute Glaze Handler for Georgiag Estuardo
--- NOTE | 2021-09-09 11:01 | PC.NURSE ---
Post Procedure Note After LHC patient transferred to CPRU 4 awaiting floor bed to be cleaned. Report called to Golden Davenport RN. TR band to right wrist asymptomatic. Patient is alert and oriented X 4. Denies pain. Breathing even and non-labored. Pt placed on bedside monitor. V/s obtained HR 60 sinus rhythm, O2 sat 96% RA, BP 119/72.
--- NOTE | 2021-09-09 11:25 | P.DS_ITS ---
Discharge Providers Date of Admission: 09/07/21 19:29 Date of Discharge: September 09, 2021 Attending Provider at Admission: Cherelle Duron MD Attending Provider at Discharge: Chino Wyatt MD Primary Care Provider: Negro Mednia Diagnoses at Discharge Discharge Diagnosis (1) Acute non-ST elevation myocardial infarction (NSTEMI): Status: Acute (2) Hypertension: Status: Acute Qualifiers: Hypertension type: primary hypertension Qualified Code(s): I10 - Essential (primary) hypertension (3) ALESHIA (acute kidney injury): Status: Acute Reason for Visit Reason for Visit: CHEST PAIN Hospital Course Hospital Course HPI Dr.Qamar Sousa Sandeep is a 76 year old male who has 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 Patient is stating that he is normally very active enjoying his retired life, he has never smoked in his life drinks alcohol occasionally. Has history of GERD for last 30 years take omeprazole. M ostly he is able to work 4 hours in his yard. Today he woke up and worked in his yard for about 20 minutes and felt fatigued and lethargic and started noticing mid back pain, around 10:30 AM he came inside his home, 1 hour after started experiencing chest discomfort which she is describing as burning sensation, that he took a shower however his symptoms got worse and then he started experiencing radiation of chest pain towards the right side of his neck and shoulder, he also felt numbness and pain in his arms bilaterally. This prompted him to go to his primary care clinic. Where EKG was done, secondary to intraventricular conduction delay he was sent to the ER for further evaluation. Patient is stating that at the clinic he received sublingual nitroglycerin which eased his chest pain. Chest pain started around 1130. Chest pain relieved around 1 PM after getting sublingual nitroglycerin. Since 1 PM he did not experience recurrence of his symptoms. He was diagnosed with NSTEMI, In the ER he was diagnosed with NSTEMI, I requested CTA chest abdomen pelvis to rule out aortic dissection, I also requested D-dimer which came back high patient was asymptomatic at the time of my evaluation with normal hemodynamics He was asking for a sandwich as she has not eaten since this morning EKG showing incomplete bundle branch block otherwise no active ischemic or infarctive changes, delta troponin 30 patient is chest pain-free Started ACS protocol. Hospital course: During the hospital stay he was managed as per ACS protocol. 2D echo was done: Which showed normal LV cavity, increased LV wall thickness, normal LV systolic function with estimated EF of 55%,There is hypokinesis of basal inferolateral and basal to mid anterolateral longoria. Grade I diastolic dysfunction (abnormal relaxation filling pattern), normal to mildly elevated filling pressures.Upper normal right ventricle cavity size with normal right ventricle systolic function.Pulmonary artery pressure estimated at 24 mm Hg.Mi ld pulmonary valve regurgitation. Patient underwent cardiac cath with no significant coronary artery stenosis, cardiology wants to manage the patient as per Myocardial infarction with nonobstructive coronary arteries.They want to continue him on aspirin Plavix statin, beta-hugo sublingual nitro as needed. 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 He has been asked to follow-up with his primary care physician for dose adjustment. # Multiple hyperenhancing bilateral renal nodules measuring up to 2.9 cm on the left and up to 1.9 cm on the right. 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 Currently being followed up by urologist Dr. Sin as an outpatient.Patient wants to continue to follow with him, has a recent appointment. For follow-up imaging studies. Also had ALESHIA on CKD stage III: Likely secondary to contrast use, responded well to IV hydration, serum creatinine was at baseline at the time of discharge, Lasix, and losartan has been held for a week at the time of discharge. It will be resumed thereafter.Patient responded well to the above medical management. He will follow cardiology ADULT PROBATION OFFICER Jeanie cai in a week and Dr. Garcia in a month. Physical Exam Const: COMMON NORMALS: patient oriented x3 HENMT: COMMON NORMALS: normocephalic, atraumatic, hearing grossly normal bilaterally and external ears normal HEAD & SCALP: normocephalic and atraumat ic EXTERNAL EAR: Yes external ears normal Eye: COMMON NORMALS: no scleral icterus GENERAL EYE: appearance normal, both eyes and all related structures Chest: COMMONS NORMALS: normal inspection of the chest and normal palpation of entire chest wall CHEST: Yes Symmetrical chest wall rise Resp: COMMON NORMALS: normal respiratory effort, No retractions, No use of accessory muscles and clear to auscultation bilaterally EFFORT & INSPECTION: Yes symmetric chest movement AUSCULTATION: clear to auscultation bilaterally Cardio: COMMON NORMALS: regular rate, regular rhythm, S1 normal heart sound present, S2 normal heart sound present, No gallops present (Cardio), No murmurs present (Cardio), No rub (Cardio) and Peripheral pulses 2+ throughout RATE: regular rate RHYTHM: regular rhythm HEART SOUNDS: S1 normal heart sound present and S2 normal heart sound present PERIPHERAL PULSES: Peripheral pulses 2+ throughout GI: COMMON NORMALS: Normal to inspection, nondistended, normoactive bowel sounds present, Soft to palpation, non-tender, No hepatosplenomegaly present and no masses AUSCULTATION: Yes normoactive bowel sounds PALPATION: Yes Soft to palpation and Yes No hepatosplenomegaly present RECTAL EXAM: Yes deferred Extremity: COMMON NORMALS: no clubbing, cyanosis or edema and no pedal edema Neuro: COMMON NORMALS: patient oriented x3 Discharge Data Data Completed and Pending: Completed Studies During Hospitalization Category Date Time Status CT angio chest ab domen pelvis Stat Cat Scan 09/07/21 20:21 Completed XR chest 1V karely ble [id number] Stat Exams 09/07/21 15:34 Completed CV. echo complete * [id number] Routine Ultrasound 09/08/21 22:56 Completed Pending at discharge Category Date Time Status [employer] SPECIALIST request for service Urgent Exams 09/09/21 09:45 Ordered Basic Metabolic P bonny AM LABS Lab 09/10/21 04:00 Ordered Basic Metabolic P bonny AM LABS Lab 09/11/21 04:00 Ordered Magnesium AM LABS Lab 09/10/21 04:00 Ordered Magnesium AM LABS Lab 09/11/21 04:00 Ordered Labs from last 24 hours 09/09/21 09/09/21 09/08/21 04:58 04:58 17:30 WBC 7.2 RBC 5.22 Hgb 15.4 Hct 48.2 MCV 92.3 MCH 29.5 MCHC 32.0 RDW 13.9 Plt Count 252 MPV 10.4 Neut % (Auto) 45.2 Lymph % (Auto) 37.6 Perry % (Auto) 12.2 Eos % (Auto) 3.6 Baso % (Auto) 0.8 Neut # (Auto) 3.26 Lymph # (Auto) 2.7 Perry # (Auto) 0.9 Eos # (Auto) 0.3 Baso # (Auto) 0.1 Nucleated RBC % (a uto) 0 Nucleated RBCs # 0.0 Sodium 138 Potassium 4.2 Chloride 108 H Carbon Dioxide 22 Anion Gap 12.2 BUN 26 H Creatinine 1.1 GFR Calculation Not Reportable Glucose 107 Calculated Osmolal ity 291 Calcium 9.1 Magnesium 1.9 Troponin T Gen 5 n g/L Triglycerides Cholesterol LDL Cholesterol, C alc HDL Cholesterol LDL/HDL Ratio Cholesterol/HDL Ra parrish SARS-CoV-2 Ag (Rap id) Negative 09/08/21 09/08/21 05:40 05:40 WBC RBC Hgb Hct MCV MCH MCHC RDW Plt Count MPV Neut % (Auto) Lymph % (Auto) Perry % (Auto) Eos % (Auto) Baso % (Auto) Neut # (Auto) Lymph # (Auto) Perry # (Auto) Eos # (Auto) Baso # (Auto) Nucleated RBC % (a uto) Nucleated RBCs # Sodium Potassium Chloride Carbon Dioxide Anion Gap BUN Creatinine GFR Calculation Glucose Calculated Osmolal ity Calcium Magnesium Troponin T Gen 5 n g/L 436 H* Triglycerides 144 Cholesterol 120 LDL Cholesterol, C alc 65 HDL Cholesterol 26 L LDL/HDL Ratio 2.50 Cholesterol/HDL Ra parrish 4.62 SARS-CoV-2 Ag (Rap id) Vitals: Last Vital Signs Temp 98.7 F 09/09/21 08:50 Pulse 60 09/09/21 11:00 Resp 20 H 09/09/21 11:00 BP 119/72 09/09/21 11:00 Pulse Ox 94 09/09/21 11:00 Discharge Plan Discharge Patient Disposition: Home Condition: Stable Prescriptions: New clopidogrel 75 mg Tablet 75 mg PO DAILY 30 Days Qty: 30 RF: 3 metoprolol succinate 25 mg capsule,sprinkle,ER 24hr 25 mg PO DAILY Qty: 30 RF: 3 atorvastatin 40 mg Tablet 40 mg PO DAILY 30 Days Qty: 30 RF: 3 nitroglycerin 0.4 mg tablet, sublingual 0.4 mg sublingual Q5M PRN (Reason: chest pain) Qty: 30 RF: 0 Continued omeprazole 20 mg capsule,delayed release(DR/EC) 20 mg PO QAM RF: 0 tamsulosin [Flomax] 0.4 mg capsule 0.4 mg PO QAM RF: 0 diclofenac sodium 100 mg tablet extended release 24 hr 100 mg PO QAM RF: 0 temazepam [Restoril] 30 mg capsule 30 mg PO DAILY PRN (Reason: Sleep) RF: 0 multivitamin Tablet 1 tab PO DAILY RF: 0 calcium 600 mg Capsule 600 mg PO DAILY RF: 0 potassium chloride 10 mEq tablet extended release 10 meq PO QAM RF: 0 fenofibrate micronized 200 mg capsule 200 mg PO QAM RF: 0 methocarbamol 750 mg Tablet 750 mg PO PRN RF: 0 testosterone cypionate 200 mg/mL oil 400 mg SUBCUT .EVERY 3 WEEKS RF: 0 Changed aspirin 325 mg Tablet 81 mg PO DAILY 30 Days Qty: 30 RF: 3 Held losartan 100 mg tablet 100 mg PO QAM RF: 0 Hold Instructions: Resume on 09/16/21. furosemide 40 mg tablet 40 mg PO QAM RF: 0 Hold Instructions: Resume on 09/16/21. Discontinued ibuprofen 800 mg tablet 800 mg PO TID PRN (Reason: Pain) RF: 0 Referrals: Negro Medina [Primary Care Provider] - Scott Monge M.D [Physician] - 1 month Jeanie Cai FNP [Nurse Practitioner] - 1 week Discharge Diet: Low Salt Discharge Activity: Resume usual activity Patient Instructions: Opioid Safety Discharge Attestations Time Spent in Discharge Care*: less than 30 min Specific Discharge Activities: educating patient, educating and/or supporting family/caregiver, discussing with pcp/other providers, discussing with mattress spring encaser/social workers/dc planners, documenting/other paperwork and evaluating patient/reviewing data Status at Discharge: Cognitive status at discharge: cognitively intact , Behavioral status at discharge: cooperative , Functional status at discharge: independent ambulation Overall status at discharge: patient is back to base line Quality Metrics Clinical Quality Measures During this hospital stay, did patient experience: None Coding Level of Care Code Acute g DC note Diagnoses Acute non-ST elevation myocardial infarction (NSTEMI) I21.4 Hypertension I10 Hypertension type: primary hypertension ALESHIA (acute kidney injury) N17.9
--- NOTE | 2021-09-09 11:39 | PC.NURSE ---
Transfer Note Patient transferred to [facility] from pathology laboratory director via wheelchair. Handoff received from Rehana SUNG. Patient oriented to environment and equipment. Covering service notified. Orders reviewed and will continue to monitor. Family and/or insurance service representative notified.
--- NOTE | 2021-09-09 15:00 | PC.NURSE ---
Discharge Note Patient discharged to Home via private vehicle accompanied by friends. Discharge instructions reviewed with patient and/or financial foundations representative. Mobile pharmacy medications and/or prescriptions provided. Belongings/home medications returned.
--- NOTE | 2021-09-10 14:36 | PC.SOCIAL ---
discharge follow up call made, spoke with patient. patient denies chest pain or sob. patient reports he hasn't removed the bandage from his incision but there is no drainage around bandage. patient is taking new medications as prescribed. patient is aware of held medications, lasix, potassium, and losartan. patient changed his aspirin from 325 to 81 per instructions. patient has follow up appointments which he will have to change due to scheduling conflicts with other appointments but he wishes to call and make those changes.no questions of concerns voiced.
== END 2021-09-09 15:00 | disposition home or self-care (01) | DRG 281 ==
LOC: ER 19:29 → MEDSURG 22:13 → CSU 09-09 11:33
PROVIDERS: Internal Medicine; Internal Medicine Cardiovascular Disease; Admitting Provider Internal Medicine; Emergency Provider Emergency Medicine; PCP Family Medicine; Visit Provider Internal Medicine
DX: I21.4 Non-ST elevation (NSTEMI) myocardial infarction (principal); N17.9 Acute kidney failure, unspecified; T50.8X5A Adverse effect of diagnostic agents, initial encounter; E87.5 Hyperkalemia; I20.0 Unstable angina; D75.1 Secondary polycythemia; T38.7X5A Adverse effect of androgens and anabolic congeners, initial encounter; I12.9 Hypertensive chronic kidney disease with stage 1 through stage 4 chronic kidney disease, or unspecified chronic kidney disease; N18.30 Chronic kidney disease, stage 3 unspecified; K21.9 Gastro-esophageal reflux disease without esophagitis; I45.4 Nonspecific intraventricular block; E78.1 Pure hyperglyceridemia; N40.0 Benign prostatic hyperplasia without lower urinary tract symptoms; Z95.0 Presence of cardiac pacemaker; Z79.82 Long term (current) use of aspirin
CPT/HCPCS: 36415; 71045; 71275; 74174; 80048; 80053; 80061; 83036; 83690; 83735; 84484; 85025; 85378; 87426; 93005; 93306; 93452; 93458; 96361; 96365; 96372; 99285; C1769; C1887; C1894; J1644; J1650; J2250; J3010; J3490; J7030; Q0163; Q9967

== ENCOUNTER → 2021-09-17 11:29 | Outpatient (BNVA) | payer MEDICARE, OTHER, SELFPAY | PROVIDERS: PCP Family Medicine; Visit Provider Nurse Practitioner Family | DX: I10 Essential (primary) hypertension (principal); I25.10 Atherosclerotic heart disease of native coronary artery without angina pectoris | CPT/HCPCS: 80048 ==

== ENCOUNTER → 2022-11-12 09:41 | Outpatient (BNVA) | payer MEDICARE, OTHER, SELFPAY | PROVIDERS: PCP Family Medicine; Visit Provider Internal Medicine | DX: I10 Essential (primary) hypertension (principal); I49.5 Sick sinus syndrome; Z95.0 Presence of cardiac pacemaker; I25.10 Atherosclerotic heart disease of native coronary artery without angina pectoris | CPT/HCPCS: 93280; 99214 ==

== ENCOUNTER → 2024-09-17 14:36 | Outpatient (BNVA) | payer MEDICARE, OTHER, SELFPAY | PROVIDERS: PCP Family Medicine; Visit Provider Internal Medicine Cardiovascular Disease | DX: I25.10 Atherosclerotic heart disease of native coronary artery without angina pectoris (principal); R55 Syncope and collapse; I10 Essential (primary) hypertension; Z95.0 Presence of cardiac pacemaker | CPT/HCPCS: 99204 ==

== ENCOUNTER 2024-10-11 14:15 | Outpatient (CLI) | payer MEDICARE, OTHER, SELFPAY ==
--- NOTE | 2024-10-11 14:15 | USCV_ITS ---
Lars Hopkins Age: 79 Gender: M : 1945 Exam Date: 10/11/2024 14:43 Ordering Phys: Cherelle Kelly MD ([email or web address]) Technologist: CT Exam Location: [facility] – [place] Indication: BP: / HR: Rhythm: Sinus Technical Quality: Adequate MEASUREMENTS (Male / Female) Normal Values FINDINGS Left Ventricle Normal left ventricular size, systolic function and wall thickness, with no regional wall motion abnormalities. Left ventricular ejection fraction is estimated at 60 %. Grade I/IV diastolic dysfunction (abnormal relaxation filling pattern), normal to mildly elevated filling pressures. Right Ventricle Normal right ventricular size and systolic function. Catheter/pacemaker wire visualized in the right ventricle. Right Atrium Normal right atrial size. Catheter/pacemaker wire in the right atrial cavity. Left Atrium The left atrium is normal in size. Mitral Valve Moderately thickened mitral valve. No mitral valve stenosis. Trace mitral valve regurgitation. Aortic Valve Moderate aortic valve calcification. There appeared to be restriction of the aortic valve but no true stenosis. Tricuspid Valve Trace tricuspid valve regurgitation. Pulmonic Valve Trace pulmonary valve regurgitation. Pericardium Normal pericardium without effusion. Aorta Normal ascending aorta dimension. IVC The inferior vena cava appears normal. CONCLUSIONS Normal left ventricular size, systolic function and wall thickness, with no regional wall motion abnormalities. Left ventricular ejection fraction is estimated at 60 %. Grade I/IV diastolic dysfunction (abnormal relaxation filling pattern), normal to mildly elevated filling pressures. Moderate aortic valve calcification. There appeared to be restriction of the aortic valve but no true stenosis. Moderately thickened mitral valve. No mitral valve stenosis. Trace mitral valve regurgitation. Trace tricuspid valve regurgitation. There is no pericardial effusion. Right atrial pressure is around 5 mm of mercury. Cherelle Kelly MD (Electronically Signed) Final Date: 11 October 2024 21:52 S
== END 2024-10-11 14:24 | disposition home or self-care (01) ==
PROVIDERS: PCP Family Medicine; Visit Provider Internal Medicine Cardiovascular Disease
DX: I50.30 Unspecified diastolic (congestive) heart failure (principal); R01.1 Cardiac murmur, unspecified; R55 Syncope and collapse; I34.81 Nonrheumatic mitral (valve) annulus calcification; I35.0 Nonrheumatic aortic (valve) stenosis; Z95.0 Presence of cardiac pacemaker
CPT/HCPCS: 93306

== ENCOUNTER → 2025-03-06 14:01 | Outpatient (BNVA) | payer MEDICARE, OTHER, SELFPAY | PROVIDERS: PCP Family Medicine; Visit Provider Internal Medicine Cardiovascular Disease | DX: I10 Essential (primary) hypertension (principal); Z95.0 Presence of cardiac pacemaker; I38 Endocarditis, valve unspecified; R55 Syncope and collapse; I35.0 Nonrheumatic aortic (valve) stenosis | CPT/HCPCS: 99214 ==

== ENCOUNTER → 2025-03-20 10:47 | Outpatient (BNVA) | payer MEDICARE, OTHER, SELFPAY | PROVIDERS: PCP Family Medicine; Visit Provider Internal Medicine | DX: Z45.018 Encounter for adjustment and management of other part of cardiac pacemaker (principal) | CPT/HCPCS: 93296 ==

== ENCOUNTER → 2025-06-19 12:09 | Outpatient (BNVA) | payer MEDICARE, OTHER, SELFPAY | PROVIDERS: PCP Family Medicine; Visit Provider Internal Medicine Cardiovascular Disease | DX: Z45.018 Encounter for adjustment and management of other part of cardiac pacemaker (principal) | CPT/HCPCS: 93296 ==

== ENCOUNTER → 2025-08-29 14:02 | Outpatient (BNVA) | payer MEDICARE, OTHER, SELFPAY | PROVIDERS: PCP Family Medicine; Visit Provider Internal Medicine Cardiovascular Disease | DX: R55 Syncope and collapse (principal); Z95.0 Presence of cardiac pacemaker; I10 Essential (primary) hypertension; E78.5 Hyperlipidemia, unspecified; I35.9 Nonrheumatic aortic valve disorder, unspecified | CPT/HCPCS: 99214 ==